=== PATIENT | male | born 1990 | race Caucasian/White ===

== ENCOUNTER 2024-03-19 20:08 | Emergency (ER) | payer OTHER, SELFPAY ==
[2024-03-19 20:11] VITALS: BP 149/95; PULSE 109; RESP 20; TEMP 36.4; O2SAT 97
--- NOTE | 2024-03-19 22:04 | ED.WOUNDLAC ---
HPI - Wound/Laceration General Chief Complaint: Wound/Laceration Stated Complaint: lac Time Seen by Provider: 03/19/24 20:43 Source: patient Mode of arrival: ambulatory Limitations: no limitations History of Present Illness HPI narrative: This is a 33 year old male that presents to the ER for laceration to the right calf sustained just prior to arrival. Reports he accidentally cut it on a broken black light. Reports bleeding and pain in the area. He is not up-to-date on tetanus vaccination. Denies decreased range of motion or numbness Related Data Allergies Allergy/AdvReac Type Severity Reaction Status Date / Time tramadol Allergy Unknown Verified 02/01/12 12:56 Review of Systems Review of Systems: CONSTITUTIONAL: Denies fever SKIN: Reports laceration All systems reviewed & are unremarkable except as noted in HPI and below PMFSH Past Medical History Medical History (Updated 03/19/24 @ 22:10 by Maribell Santa PA-C) No active medical problems Family History Family History (Updated 02/01/12 @ 12:58 by DOCTOR UNKNOWN) Other Diabetes mellitus Social History Social History Alcohol intake: never Exam Narrative: GENERAL: Well-appearing, well-nourished, and in no acute distress. HEAD: Normocephalic, atraumatic. EYES: EOMI. EXTREMITIES: Normal range of motion. No edema. Normal DP pulse. 15cm linear laceration into subcutaneous tissue to the right calf SKIN: Warm, dry, no rash. NEURO: No focal deficits. Alert and oriented x3. PSYCH: Normal mood and affect Course Course Emergency Course: Patient educated on wound care Vital Signs Vital signs: Vital Signs Temperature 97.5 F L 03/19/24 20:11 Pulse Rate 109 H 03/19/24 20:11 Respiratory Rate 03/19/24 20:11 Blood Pressure 149/95 H 03/19/24 20:11 Pulse Oximetry 97 03/19/24 20:11 Oxygen Delivery Room Air 03/19/24 20:11 Temperature 97.5 F L 03/19/24 20:11 Pulse Rate 109 H 03/19/24 20:11 Respiratory Rate 20 03/19/24 20:11 Blood Pressure 149/95 H 03/19/24 20:11 Pulse Oximetry 97 03/19/24 20:11 Oxygen Delivery Room Air 03/19/24 20:11 Procedures Laceration Laceration 1: Date: 03/19/24 Time: 22:09 Site: lower extremity Side (If applicable): right Size (cm): 15 Description: linear Depth: simple, single layer Local Anesthetic: lidocaine 1% and with epi Amount of anesthesia used (mL): 5 Pre-repair: wound explored and irrigated extensively ====== Skin Level ====== Skin layer closed with: nylon Size (cm): 3-0 Number of sutures: 12 Technique: simple, interrupted ====== Subcutaneous Layer ====== ====== Muscle Layer ====== ====== Tendon Layer ====== MDM - Wound/Laceration MDM Narrative Medical decision making narrative: Patient presents to the ER for laceration to the right calf sustained just prior to arrival. Wound was irrigated and closed with sutures. Patient is neurovascularly intact. Tetanus updated. He was educated on further wound care. He is to follow up with primary provider. He was given warnings to return the ER Differential Diagnosis Differential diagnosis: Likely laceration, abrasion and avulsion of skin Critical Care Time Critical Care Time Critical Care Time: No Discharge Plan Discharge Clinical Impression: Laceration Patient Disposition: Home, Self-Care Condition: Stable Instructions: Care For Your Stitches (ED), Laceration (ED) Additional Instructions: Return to the emergency department if you experience fever, redness or swelling of your wound, abnormal drainage from your wound, or any other symptoms that are concerning to you. Apply antibiotic ointment daily. Do not soak the wound. Clean with mild soap and water daily Follow-up with your primary care doctor for suture removal in 10-14 days. Follow-up/Referrals: PHYSICIAN,[facility] [[facility]
[2024-03-19] MEDS: TETANUS,DIPHTHERIA,AC PERTUSSIS ADULT (0.5 ML) BOOSTRIX IM (22:13)
[2024-03-19 22:17] VITALS: BP 144/88; PULSE 90; RESP 15; O2SAT 98
== END 2024-03-19 22:19 | disposition home or self-care (01) ==
PROVIDERS: Emergency Provider Physician Assistant
DX: S81.811A Laceration without foreign body, right lower leg, initial encounter (principal); Z23 Encounter for immunization; W25.XXXA Contact with sharp glass, initial encounter
CPT/HCPCS: 12005; 90471; 90715; 99282

== ENCOUNTER 2024-04-12 22:12 | Emergency (ER) | payer OTHER, SELFPAY ==
[2024-04-12 22:13] VITALS: BP 168/108; PULSE 110; RESP 16; TEMP 36.1; O2SAT 97
--- NOTE | 2024-04-12 23:19 | ED.RECABL ---
HPI - Recheck/Abnormal Lab/Rx General Chief Complaint: Recheck/Abnormal Lab/Rx Stated Complaint: need stitches removed Time Seen by Provider: 04/12/24 22:57 Source: patient Mode of arrival: ambulatory Limitations: no limitations History of Present Illness HPI narrative: This is a 34-year-old male that presents to the emergency department for suture removal. Had sutures placed to the right lower leg 3 and half weeks ago. Reports he has been swimming in a dirty swimming pool. He also tried to bandage the wound with toilet paper and they got stuck in the wound. He has had some redness of the wound. Denies fevers or abnormal drainage. Related Data Allergies Allergy/AdvReac Type Severity Reaction Status Date / Time tramadol Allergy Unknown Verified 02/01/12 12:56 Review of Systems Review of Systems: CONSTITUTIONAL: Denies fever SKIN: Reports redness. All systems reviewed & are unremarkable except as noted in HPI and below PMFSH Past Medical History Medical History (Updated 04/13/24 @ 00:52 by Maribell Santa PA-C) No active medical problems Family History Family History (Updated 02/01/12 @ 12:58 by DOCTOR UNKNOWN) Other Diabetes mellitus Social History Social History Alcohol intake: never Exam Narrative: GENERAL: Well-appearing, well-nourished, and in no acute distress. HEAD: Normocephalic, atraumatic. EYES: EOMI. EXTREMITIES: Normal range of motion. Mild swelling and redness noted around sutures in place to the right lower extremity. No abnormal drainage SKIN: Warm, dry, no rash. NEURO: No focal deficits. Alert and oriented x3. PSYCH: Normal mood and affect Course Course Emergency Course: Patient left before receiving discharge papers Vital Signs Vital signs: Vital Signs Temperature 97 F L 04/12/24 22:13 Pulse Rate 110 H 04/12/24 22:13 Respiratory Rate 16 04/12/24 22:13 Blood Pressure 168/108 H 04/12/24 22:13 Pulse Oximetry 97 04/12/24 22:13 Oxygen Delivery Room Air 04/12/24 22:13 Temperature 97 F L 04/12/24 22:13 Pulse Rate 110 H 04/12/24 22:13 Respiratory Rate 16 04/12/24 22:13 Blood Pressure 168/108 H 08/18/24 22:13 Pulse Oximetry 97 04/12/24 22:13 Oxygen Delivery Room Air 04/12/24 22:13 Procedures Other Procedure Procedure 1: Other Procedure: Sutures removed using scissors and forceps MDM - Recheck/Abnormal Lab/Rx MDM Narrative Medical decision making narrative: Patient presents to the emergency department for suture removal. He left the sutures in his leg for 3 and half weeks. He did not take very good care of the wound. There is mild surrounding redness and swelling. No abnormal drainage. Sutures were removed. Wound cleansed and antibiotic ointment and bandage applied. Patient will be started on oral antibiotics. Given 1st dose in the ED. He left before receiving his discharge papers Differential Diagnosis Differential diagnosis: Likely encounter for removal of sutures and other (cellulitis, abscess) Critical Care Time Critical Care Time Critical Care Time: No Discharge Plan Discharge Clinical Impression: Cellulitis Qualifiers: Site of cellulitis: extremity Site of cellulitis of extremity: lower extremity Laterality: right Qualified Code(s): L03.115 - Cellulitis of right lower limb Patient Disposition: Home, Self-Care Condition: Stable Instructions: Antibiotic Form, Cellulitis (ED), Acute Wounds (ED) Additional Instructions: Return to the emergency department if you experience fever, worsening redness or swelling of your wound, abnormal drainage from your wound, or any other symptoms that are concerning to you. Take oral antibiotics as prescribed. Apply antibiotic ointment daily. Do not soak the wound/do not swim. Clean with mild soap and water daily and change your bandage Follow-up with your primary care doctor for wound check Prescriptions: New cephalexin 500 mg capsule
[2024-04-12] MEDS: levoFLOXacin 750 MG TABLET PO (23:32)
[2024-04-12] MEDS: CEPHALEXIN 500 MG CAPSULE PO (23:32)
--- NOTE | 2024-04-13 01:04 | PC.NURSE ---
This RN called pt to notify pt where RX was sent, no answer voicemail left. Rx sent to [facility] in [place].
--- NOTE | 2024-04-13 01:07 | PC.NURSE ---
Pt left prior to being dc or receiving dc instructions. JOJO Reyna made aware.
== END 2024-04-13 01:09 | disposition home or self-care (01) ==
PROVIDERS: Emergency Provider Physician Assistant; PCP Physician Assistant
DX: L03.115 Cellulitis of right lower limb (principal)
CPT/HCPCS: 15853; 99283; A9270

== ENCOUNTER 2025-07-30 19:32 | Emergency (ER) | payer OTHER, SELFPAY ==
[2025-07-30] VITALS (7 sets, daily range): BP systolic 139–167; BP diastolic 92–108; PULSE 89–111; RESP 13–16; TEMP 36.3; O2SAT 97–100
--- NOTE | 2025-07-30 19:57 | ED_ITS ---
HPI - General Adult General Chief complaint: Unspecified Stated complaint: found in car from taking xanax Time Seen by Provider: 07/30/25 19:49 Source: patient Mode of arrival: EMS Limitations: no limitations History of Present Illness HPI narrative: patient is a 35-year-old male presents to the emergency department via EMS due to being found in a car asleep by PD and was given the choice of either [facility]. Patient admits to using lots of drugs with fentanyl, also took Xanax from a describes it as 1-1.5 little blue pills. Patient is easily arousable by frequently falls asleep on exam. patient admitted to doing two beans of fentanyl in triage. Denies any injuries. Denies any recent illness. Denies any current complaints. Related Data Allergies Allergy/AdvReac Type Severity Reaction Status Date / Time tramadol Allergy Unknown Verified 02/01/12 12:56 Review of Systems Review of Systems: A 10 system review of systems was completed on the patient and is negative except for what is stated in the HPI. Nursing and ancillary documentation was reviewed. [facility] Past Medical History Medical History (Updated 07/31/25 @ 01:17 by Ten Santoyo DO) No active medical problems Family History Family History (Updated 02/01/12 @ 12:58 by DOCTOR UNKNOWN) Other Diabetes mellitus Social History Social History Alcohol intake: never Exam Narrative: CONST: No acute distress. Intermittently falls asleep on exam. HENMT: Head is normocephalic and atraumatic. Moist mucous membranes. No posterior oropharynx erythema. EYES: No scleral icterus. No conjunctival injection or pallor. PERRL. pupils are 2 mm bilaterally. NECK: No meningeal signs. RESP: Able to speak in full sentences. Normal respiratory effort. CTAB. CARDIO: Regular rate. Regular rhythm. 2+ DP and radial pulses bilaterally. GI: Nondistended. No tenderness to palpation. Soft. : No CVA tenderness to palpation. SKIN: No rashes or lesions noted on exposed skin. NEURO: Oriented x3. Moves all extremities. Speech is clear and fluent. EXTREM/MSK/BACK: No pedal edema. Course Vital Signs Vital signs: Vital Signs Temperature 97.4 F L 07/30/25 19:37 Pulse Rate 89 07/30/25 19:37 Respiratory Rate 15 07/30/25 19:37 Blood Pressure 167/108 H 07/30/25 19:37 Pulse Oximetry 97 07/30/25 19:37 Oxygen Delivery Room Air 07/30/25 19:37 Temperature 97.4 F L 07/30/25 19:37 Pulse Rate 89 07/31/25 01:33 Respiratory Rate 16 07/31/25 01:33 Blood Pressure 173/115 H 07/31/25 01:33 Pulse Oximetry 96 07/31/25 01:33 Oxygen Delivery Room Air 07/30/25 19:37 MDM MDM Narrative Medical decision making narrative: Patient presents with the above complaint. Initial vitals are remarkable for no significant abnormalities. Physical examination as noted above. Plan discussed: Patient admits to illicit drug use, will monitor for opioid overdose, at this time patient is breathing with a normal rate, will place on end-tidal CO2 monitor respiratory rate administer Narcan p.r.n., patient also placed on continuous cardiac monitoring and continuous pulse oximetry, will obtain a point of care blood glucose. No signs of trauma. After multiple hours of monitoring in the emergency department without any acute interventions patient is ambulating with a steady gait, feels well at this time, speech is clear and fluent, not clinically intoxicated, tolerating oral intake, feels well at this time is ready to go home. Patient is in no acute distress. The patient has remained stable throughout the entire ED visit. Counseled patient regarding diagnostic results and potential diagnosis. Anticipatory guidance provided. Patient instructed to follow up with PCP within the next 2 days. Patient also provided with substance abuse resources for follow-up. Patient counseled on: false reassurance from an emergency department evaluation; no current evidence of a medical emergency; return immediately for any new, recurrent, worsening, concerning, or refractory symptoms. Patient prescribed Naloxone and instructed on use. Prescription sent to preferred pharmacy. Medications discussed with patient. Additional verbal and printed discharge instructions were given and discussed with the patient. Patient verbally acknowledges understanding of condition and discharge instructions. All questions were answered to the patient's satisfaction. Patient is in agreement with the plan of care. The patient is stable for discharge and was discharged without incident. Differential Diagnosis Differential Diagnosis: Polysubstance abuse. Discharge Plan Discharge Clinical Impression: Polysubstance abuse Patient Disposition: Home Condition: Stable Instructions: Antibiotic Form, Naloxone (Into the nose), Narcotic Use Disorder (ED) Additional Instructions: Follow-up with the primary care physician in the next few days for reassessment, rest and stay well hydrated, administer Narcan is needed as we discussed. Return immediately to the emergency department for any new or concerning symptoms especially any emergent concerns for life, limb, eyesight. Use the resources provided to you for substance abuse. Patient Language: Spanish Prescriptions: New naloxone [Narcan] 4 mg/actuation spray,non-aerosol 4 mg intranasal Q2M PRN (Reason: opioid overdose) Qty: 2 0RF Rx Instructions: spray 1 dose into ONE nostril; alternate nostrils w each dose until help arrives No Action cephalexin 500 mg capsule 500 mg PO Q6H 7 Days Qty: 28 0RF levofloxacin 750 mg tablet 750 mg PO DAILY 7 Days Qty: 7 0RF Follow-up/Referrals: Alpesh,CHACORTA Muller [Primary Care Provider, [facility]] - 2 Days Time of Disposition: 01:18
[2025-07-31 01:33] VITALS: BP 173/115; PULSE 89; RESP 16; O2SAT 96
== END 2025-07-31 01:34 | disposition home or self-care (01) ==
PROVIDERS: Emergency Provider Student in an Organized Health Care Education/Training Program; PCP Physician Assistant
DX: F11.10 Opioid abuse, uncomplicated (principal); F13.10 Sedative, hypnotic or anxiolytic abuse, uncomplicated
CPT/HCPCS: 99283